=== PATIENT | female | born 1930 | race African-American/Black ===

== ENCOUNTER 2019-06-13 02:14 | Emergency (ER) | payer OTHER, MEDICAID ==
[~2019-06-13] VITALS: Ht 157.5 cm; Wt 90.9 kg
[2019-06-13] MEDS ORDERED: ONDANSETRON HCL 4MG/2ML INJ IV STA (02:47)
[2019-06-13 03:13] LABS: BG BASE EXCESS -6.1 mmol/L (-2.0-2.0); BG CARBOXYHEMOGLOBIN 0.3 % (0.5-1.5); BG DEOXYHEMOGLOBIN 6.4 % (0.0-5.0); BG FRACTION INSPIRED OXYGEN 21; BG HCO3 ACT 17.1 mmol/L (22.0-26.0); BG METHEMOGLOBIN 0.2 % (0.0-1.5); BG OXYGEN SATURATION 93.6 % (92.0-98.5); BG OXYHEMOGLOBIN 93.1 % (94.0-97.0); BG PO2 72.6 mmHg (75.0-100.0); BG SAMPLE SITE RIGHT RADIAL; BG TOTAL HEMOGLOBIN 10.8 g/dL (12.0-18.0); BG VENT MODE ROOM AIR
[2019-06-13 03:22] LABS: BASOPHILS % 0.6 % (0.0-2.0); EOSINOPHILS % 2.3 % (0.0-5.0); HEMATOCRIT. 31.6 % (36.0-48.0); HEMOGLOBIN. 10.6 g/dL (12.0-16.0); LYMPHOCYTES % 42.3 % (20.0-50.0); MEAN CORPUSCULAR HEMOGLOBIN 29.7 pg (28.0-32.0); MEAN CORPUSCULAR VOLUME 88.9 fL (81.0-99.0); MEAN PLATELET VOLUME 9.5 fl (7.4-10.4); MONOCYTES % 9.7 % (2.0-8.0); NEUTROPHILS % 45.1 % (40.0-76.0); PLATELET 239 x1000/uL (130-400); RED BLOOD CELL COUNT 3.56 mill/uL (4.2-5.4); RED CELL DISTRIBUTION WIDTH 13.9 % (11.6-14.6)
[2019-06-13 03:24] LABS: CHLORIDE 111 mEq/L (98-107)
[2019-06-13 03:25] LABS: PROTHROMBIN TIME 10.7 sec (9.6-11.0)
[2019-06-13] MEDS ORDERED: GUAIFENESIN/CODEINE 200-20MG/10ML UDC PO ONE (03:45)
[2019-06-13] MEDS ORDERED: FUROSEMIDE 20MG/2ML VIAL IVP ONE (04:45)
[2019-06-13] MEDS ORDERED: DEXTROSE 50% WATER 50ML SYRINGE IV ONE (05:00)
[2019-06-13 06:25] VITALS: BP 133/52
== END 2019-06-13 06:44 | disposition short-term general hospital (02) ==
LOC: ER 02:14 → CANBEDREQ 07:02
DX: I11.0 Hypertensive heart disease with heart failure (principal); I50.9 Heart failure, unspecified; E11.9 Type 2 diabetes mellitus without complications; J45.909 Unspecified asthma, uncomplicated
CPT/HCPCS: 36415; 36600; 71045; 80053; 82375; 82805; 82962; 83605; 83880; 84484; 85025; 85610; 87040; 93005; 96374; 96375; 99285; J1940